=== PATIENT | female | born 1965 | race Caucasian/White ===

== ENCOUNTER 2020-08-09 15:21 | Outpatient (REF) | payer OTHER, SELFPAY ==
[2020-08-09 15:53] LABS: MANUAL DIFF FLAG NO
[2020-08-09 16:01] LABS: Basophils Percent Auto 0.3 % (0-2); Eosinophils Absolute Auto 0.1 X10*3/uL (0.0-0.4); Eosinophils Percent Auto 1.3 % (0-4); Hemoglobin 13.4 g/dl (12.0-16.0); Imm Gran Abs Auto 0.05 X10*3/uL (0.00-0.03); Imm Gran Pct Auto 0.5 % (0.0-0.4); Lymphocytes Absolute Auto 3.3 X10*3/uL (1.2-4.9); Lymphocytes Percent Auto 32.9 % (20-40); Mean Corpuscular HGB Conc 31.9 g/dl (31.0-35.0); Mean Corpuscular Hemoglobin 29.7 pg (27.0-33.0); Mean Corpuscular Volume 93.1 fL (80-98); Mean Platelet Volume 10.9 fL (9.4-12.3); Monocytes Absolute Auto 0.6 X10*3/uL (0.1-1.2); Monocytes Percent Auto 6.1 % (2-11); Neutrophils Percent Auto 58.9 % (45-73); Platelet Count 319 X10*3/uL (160-400); Red Blood Count 4.51 X10*6/uL (4.20-5.50); Red Cell Distribution Width 12.5 % (11.0-16.0); White Blood Count 10.2 X10*3/uL (4.8-10.8)
[2020-08-09 16:03] LABS: Estimated Average Glucose 105 mg/dL; Hemoglobin A1c % 5.3 %
[2020-08-09 16:18] LABS: Alanine Aminotransferase 15 U/L (0-31); Albumin Level 4.4 g/dL (3.5-5.0); Alkaline Phosphatase 87 U/L (39-117); Anion Gap 11 (12-20); Aspartate Amino Transferase 19 U/L (5-31); Blood Urea Nitrogen 13 mg/dL (9-16); Carbon Dioxide 27 mmol/L (22-29); Chloride 105 mmol/L (96-108); Cholesterol 252 mg/dL; Estimated Glomerular Filt Rate > 60; Glucose Fasting 87 mg/dL (60-99); HDL Cholesterol 49 mg/dL; LDL Cholesterol Calculated 159 mg/dl; Potassium 4.4 mmol/l (3.3-5.1); Sodium 139 mmol/L (135-145); Total Protein 7.1 g/dL (6.5-8.0); Triglycerides 223 mg/dL
[2020-08-09 16:38] LABS: TSH reflex Free T4 0.71 mIU/mL (0.32-4.0)
== END 2020-08-09 15:22 | disposition home or self-care (01) ==
LOC: HO.LAB 15:21
PROVIDERS: PCP Physician Assistant; Visit Provider Physician Assistant
DX: E66.09 Other obesity due to excess calories (principal); Z68.39 Body mass index [BMI] 39.0-39.9, adult; Z13.29 Encounter for screening for other suspected endocrine disorder; Z13.220 Encounter for screening for lipoid disorders; Z13.1 Encounter for screening for diabetes mellitus
CPT/HCPCS: 36415; 80053; 80061; 83036; 84443; 85025

== ENCOUNTER 2020-08-29 12:09 | Outpatient (REF) | payer OTHER, SELFPAY ==
--- NOTE | 2020-08-29 12:13 | MM_ITS ---
EXAMINATION: MM SCREENING DIGITAL BREAST TOMOSYNTHESIS, BILATERAL CLINICAL INFORMATION: Screening. Asymptomatic. The lifetime risk of breast cancer based on the Tyrer-Cuzick Model is 4.2%. COMPARISON: Mammography: February 03, 2013 and studies dating back to November 29, 2010 TECHNIQUE: Digital breast tomosynthesis is performed in both the craniocaudal and mediolateral oblique views along with computer-aided detection (CAD). Synthesized 2D images are generated from the tomosynthesis. FINDINGS: There are scattered areas of fibroglandular density (ACR BI-RADS breast composition Category b). There are no significant masses, abnormal calcifications, or other abnormalities. MM/MM tomosynthesis screening BI IMPRESSION: There are no significant changes from prior study. ASSESSMENT: BI-RADS 1: Negative RECOMMENDATION: Routine annual mammography screening. This patient's information was entered into a reminder system with a target due date for their next mammogram.
== END 2020-08-29 12:10 | disposition home or self-care (01) ==
LOC: HO.MAMMO 12:09
PROVIDERS: Visit Provider Physician Assistant
DX: Z12.31 Encounter for screening mammogram for malignant neoplasm of breast (principal)
CPT/HCPCS: 77063; 77067

== ENCOUNTER → 2020-10-17 14:54 | Outpatient (BNVA) | payer OTHER, SELFPAY | PROVIDERS: PCP Physician Assistant; Visit Provider Nurse Practitioner ==

== ENCOUNTER 2021-09-10 10:38 | Outpatient (REF) | payer OTHER, SELFPAY ==
--- NOTE | ~2021-09-10 | MM_ITS ---
EXAMINATION: MM SCREENING DIGITAL BREAST TOMOSYNTHESIS, BILATERAL CLINICAL INFORMATION: Screening. Asymptomatic. The lifetime risk of breast cancer based on the Tyrer-Cuzick Model is 5%. COMPARISON: Mammography: 08/29/2020, outside exam 02/03/2013 ([facility]) TECHNIQUE: Digital breast tomosynthesis is performed in both the craniocaudal and mediolateral oblique views along with computer-aided detection (CAD). Synthesized 2D images are generated from the tomosynthesis. Additional left MLO view is provided. FINDINGS: There are scattered areas of fibroglandular density (ACR BI-RADS breast composition Category b). There are no significant masses, abnormal calcifications, or other abnormalities. Parenchymal pattern is similar to prior studies. There is no developing density or architectural abnormality. The axilla and skin contours are unremarkable. No significant changes. MM/MM tomosynthesis screening BI IMPRESSION: No mammographic evidence of malignancy. ASSESSMENT: BI-RADS 1: Negative RECOMMENDATION: Routine annual mammography screening. This patient's information was entered into a reminder system with a target due date for their next mammogram.
[2021-09-10 12:16] LABS: Hematocrit 43.7 % (37.0-47.0); Hemoglobin 13.8 g/dl (12.0-16.0); Mean Corpuscular HGB Conc 31.6 g/dl (31.0-35.0); Mean Corpuscular Hemoglobin 29.9 pg (27.0-33.0); Mean Corpuscular Volume 94.8 fL (80.0-98.0); Mean Platelet Volume 10.4 fL (9.4-12.3); Platelet Count 359 X10*3/uL (160-400); Red Blood Count 4.61 X10*6/uL (4.20-5.50); Red Cell Distribution Width 13.1 % (11.0-16.0)
[2021-09-10 12:19] LABS: Estimated Average Glucose 100 mg/dL; Hemoglobin A1c % 5.1 %
[2021-09-10 12:36] LABS: Alanine Aminotransferase 42 U/L (0-31); Albumin Level 4.2 g/dL (3.5-5.0); Alkaline Phosphatase 95 U/L (39-117); Anion Gap 11 (12-20); Aspartate Amino Transferase 21 U/L (5-31); Bilirubin Total 0.9 mg/dL (0.0-1.0); Blood Urea Nitrogen 16 mg/dL (9-16); Calcium 9.6 mg/dL (8.4-10.2); Carbon Dioxide 30 mmol/L (22-29); Chloride 105 mmol/L (96-108); Cholesterol 238 mg/dL; Estimated Glomerular Filt Rate 54; Glucose Fasting 101 mg/dL (60-99); HDL Cholesterol 48 mg/dL; Iron 87 mcg/dL (30-160); LDL Cholesterol Calculated 150 mg/dl; Percent Iron Saturation 29 % (15-50); Potassium 3.8 mmol/L (3.3-5.1); Sodium 142 mmol/L (135-145); Total Iron Binding Capacity 305 mcg/dL (228-428); Total Protein 7.1 g/dL (6.5-8.0); Triglycerides 203 mg/dL; Unsaturated Iron Binding 218 ug/dL
[2021-09-10 12:59] LABS: TSH reflex Free T4 0.79 uIU/mL (0.32-4.0)
== END 2021-09-10 10:39 | disposition home or self-care (01) ==
LOC: HO.MAMMO 10:38
PROVIDERS: PCP Physician Assistant; Visit Provider Physician Assistant
DX: E78.2 Mixed hyperlipidemia (principal); D50.9 Iron deficiency anemia, unspecified; R06.02 Shortness of breath; Z12.31 Encounter for screening mammogram for malignant neoplasm of breast
CPT/HCPCS: 36415; 77063; 77067; 80053; 80061; 83036; 83540; 84443; 85027

== ENCOUNTER → 2021-12-25 12:27 | Outpatient (BNVA) | payer OTHER, SELFPAY | PROVIDERS: PCP Physician Assistant; Referring Provider Physician Assistant; Visit Provider Physician Assistant | DX: Z01.818 Encounter for other preprocedural examination (principal); R06.02 Shortness of breath | CPT/HCPCS: 99202 ==

== ENCOUNTER 2022-03-05 09:41 | Emergency (ER) | payer OTHER, SELFPAY ==
[2022-03-05 10:03] VITALS: BP 143/93; PULSE 85; RESP 19; TEMP 36.2; O2SAT 95; BMI 41.8
--- NOTE | 2022-03-05 10:21 | ED.GENADULT ---
HPI - General Adult General Chief complaint: Headache Stated complaint: HEADACHES Time Seen by Provider: 03/05/22 10:10 Source: patient Mode of arrival: ambulatory History of Present Illness HPI narrative: 57-year-old female with no significant past medical history presenting to the ED complaining of left-sided neck pain radiating to left posterior head since early this morning. Admits to waking up with pain. Admits to similar symptoms in the past. Reports pain worse with neck movement. Denies heavy lifting/injury. Denies taking anticoagulation, vision change/loss, nausea/vomiting, numbness, tingling, weakness, fever, ear pain, sore throat Onset (ago): day(s) Related Data Previous Rx's Medication Instructions Recorded ciclopirox 0.77 % topical gel 1 appl topical BID 30 days #100 08/09/20 grams ibuprofen 600 mg tablet 600 mg PO TID PRN pain 7 days #21 08/09/20 tabs multivit with minerals-folic acid 1 tab PO .once per day 90 days #90 09/11/20 200 mcg-biotin 300 mcg chew tablet tabs (Women's Multivitamin with Biotin) fluoxetine 40 mg capsule 40 mg PO DAILY 90 days #90 caps 07/22/21 albuterol sulfate 90 mcg/actuation 1 inh inhalation QID 30 days #8.5 12/03/21 aerosol inhaler grams bisacodyl 5 mg tablet,delayed 10 mg PO ONCE colonoscopy prep 1 12/25/21 release (Dulcolax (bisacodyl)) day #2 tabs polyethylene glycol 3350 17 238 g PO ONCE 1 day #238 grams 12/25/21 gram/dose oral powder (Miralax) cyclobenzaprine 5 mg tablet 5 mg PO Q8H PRN pain (scale score 03/05/22 7-10) 5 days #14 tabs lidocaine 5 % topical patch 1 patch topical DAILY PRN pain #30 03/05/22 (Lidoderm) ea naproxen 500 mg tablet 500 mg PO BID PRN pain 10 days #20 03/05/22 tabs Allergies Allergy/AdvReac Type Severity Reaction Status Date / Time No Known Allergies Allergy Verified 12/25/21 13:15 Review of Systems Review of Systems: Constitutional: No Fever, No Chills ENT/Mouth: No Ear Pain, No Nasal Congestion, No Hoarseness, No sore throat, No Rhinorrhea, No Swallowing Difficulty Cardiovascular: No Chest Pain, No SOB Respiratory: No Cough, No Sputum, No Wheezing Gastrointestinal: No Nausea, No Vomiting, No Diarrhea, No Constipation, No Abdominal pain Genitourinary: No Dysuria, No Urinary Incontinence/retention, No Urgency, No Flank Pain Musculoskeletal: + joint pain, No Myalgias, No Joint Swelling Skin: No Skin Lesions, No rash Neuro: No Weakness, No Numbness, No Paresthesias Yes all other systems are reviewed and are negative [facility] Past Medical History Attestation statement: The following information was validated with the patient. Surgical History Hx of cholecystectomy (~2017) No pertinent past surgical history Family History Family History Father Medical history unknown Mother Hypertension Diabetes Depression Mental health disorder Brother No problems noted. Sister No problems noted. Maternal Uncle Lung cancer Social History Social History Housing: Apartment Alcohol intake: never Patient Tobacco Use Status: Never used Tobacco Tobacco use type: Cigarette e-Cigarette/Vaping Use: Never Used Second Hand Smoke Exposure: No Advance Directives: No Advance Directives Information Provided: Yes service: No Current occupational status: unemployed Cognitive needs: No Hearing needs: No Vision needs: No Physical Exam ED Vital Signs: Vital Signs - 24 hr 03/05/22 10:03 Temperature 97.2 F Pulse Rate 85 Respiratory Rate 19 Blood Pressure 143/93 H Pulse Oximetry 95 Oxygen Delivery Method Room Air BMI result Body Mass Index 41.8 Const General: cooperative, healthy appearing, no acute distress, alert and awake Orientation/consciousness: patient oriented x3 Limitations: no limitations HENMT Head: Yes normal to inspection and Yes atraumatic Ears: hearing grossly normal bilaterally, external ears normal, TM's normal bilaterally and mastoids normal General nose exam: Normal external nose present Face and sinus: Yes normal facial exam Mouth: Normal oral and palatal mucosa present Throat: Yes posterior oropharynx normal, Yes tonsils normal, Yes uvula midline and No peritonsillar mass Eyes General: appearance normal, both eyes and all related structures Pupils: Equal, round and reactive pupils present EOM: EOMs intact bilaterally Neck Other: No midline cervical spinous tenderness/step-off or deformity. Left-sided/MSK tenderness. No erythema/warmth. Limited neck ROM secondary to pain/stiffness Neck: Yes normal visual inspection, Yes no lymphadenopathy, Yes no meningeal signs, Yes supple and No anterior neck swelling Resp Effort & Inspection: normal respiratory effort and no respiratory distress Cardio Rate: regular rate Heart sounds: S1 normal heart sound present and S2 normal heart sound present GI Inspection: Yes normal to inspection Skin Rashes: no rashes Wounds: no wounds Neuro General: patient oriented x3, gait normal, tone normal, moves all extremities, no meningeal signs, no focal motor deficits and CN's II-XI intact bilaterally Cranial nerves: Yes Equal, round and reactive pupils present and Yes Bilaterally intact EOM present Gait exam (Neuro): Normal gait present Extrem General: Yes normal to inspection Course Course Course Narrative: 1111--patient reports symptomatic improvement after medications given in the ED. Medical Decision Making [facility] Narrative Medical decision making narrative: 57-year-old female with no significant past medical history presenting to the ED complaining of left-sided neck pain radiating to left posterior head since early this morning. On exam vital signs stable, NAD, physical exam as above. No midline cervical spinous tenderness. T Aurelia/oropharynx WNL. Concern for MSK pain/strain/muscle spasming. Low concern for meningitis/encephalitis, SAH, or CVT/cervical dissection Plan: Pain management, physical therapy referral Medical Records Medical records reviewed: Yes I reviewed the patient's medical records. Lab Data Lab results reviewed: Yes I reviewed the patient's lab results. Discharge Plan Discharge Clinical Impression: Neck pain Patient Disposition: Home, Self-Care Instructions: Acute Neck Pain (ED) Additional Instructions: Your pain is likely musculoskeletal Flexeril is a muscle relaxer, take at night as it makes you drowsy, do not drive, drink alcohol, or operate machinery while taking it Naproxen as an anti-inflammatory / pain medication, take with food Lidoderm patches are numbing patches, apply to painful area In addition take Tylenol at home Please follow-up with physical therapy and your doctor If symptoms persist or worsen, pain becomes unbearable, you developed urinary retention or incontinence, or weakness return to the ED Prescriptions: New lidocaine [Lidoderm] 5 % adhesive patch,medicated 1 patch topical DAILY MDD remove after 12 hours PRN (Reason: pain) Qty: 30 0RF Rx Instructions: leave on most painful area for up to 12 hrs naproxen 500 mg tablet 500 mg PO BID PRN (Reason: pain) 10 Days Qty: 20 0RF cyclobenzaprine 5 mg tablet 5 mg PO Q8H PRN (Reason: pain (scale score 7-10)) 5 Days Qty: 14 0RF No Action Women's Multivitamin w-Biotin 200-300 mcg tablet,chewable 1 tab PO .once per day 90 Days Qty: 90 2RF ibuprofen 600 mg tablet 600 mg PO TID PRN (Reason: pain) 7 Days Qty: 21 1RF ciclopirox 0.77 % gel 1 appl topical BID 30 Days Qty: 100 1RF albuterol sulfate 90 mcg/actuation HFA aerosol inhaler 1 inh inhalation QID 30 Days Qty: 8.5 1RF fluoxetine 40 mg capsule 40 mg PO DAILY 90 Days Qty: 90 0RF bisacodyl [Dulcolax (bisacodyl)] 5 mg tablet,delayed release (DR/EC) 10 mg PO ONCE 1 Days Qty: 2 0RF Rx Instructions: Take 2 tablets by mouth at 12:00pm the day before your procedure. polyethylene glycol 3350 [Miralax] 17 gram/dose powder 238 g PO ONCE 1 Days Qty: 238 0RF Rx Instructions: Take as directed by mouth the day before your procedure. Referrals: Junior Puri MD [Physician] - Donny Correia [Physical Therapy Student] -
[2022-03-05] MEDS: diazePAM 2 MG TABLET 5 MG PO (10:35)
[2022-03-05] MEDS: Ketorolac Tromethamine 30 MG/ML VIAL IM (10:37)
== END 2022-03-05 11:34 | disposition home or self-care (01) ==
PROVIDERS: Emergency Provider Emergency Medicine; PCP Physician Assistant
DX: M54.2 Cervicalgia (principal); R51.9 Headache, unspecified; I10 Essential (primary) hypertension; E78.5 Hyperlipidemia, unspecified
CPT/HCPCS: 96372; 99283; 99284; J1885

== ENCOUNTER 2022-03-31 13:44 | Outpatient (RCR) | payer OTHER, SELFPAY ==
--- NOTE | 2022-03-31 17:02 | MHC.PT.EP ---
[facility] [place] Office [place] Office [place] Office [address] Coleman Roche [address] [phone] F: [phone] F: [phone] F: [phone] F: [phone] Physical Therapy Plan of Care Date of Evaluation: Date of Surgery: NA Diagnosis: SEGMENTAL AND SOMATIC DYSFUNCTION OF CERVICAL REGION Assessment: Pt IS 57 YO F REFERRED TO PT FROM [facility] WITH DYSFUNCTION OF CERVICAL REGION. Pt REPORTS 1 YR HX OF NECK PAIN WITH INSIDIOUS ONSET. PRESENTS WITH POOR POSTURE, TIGHT UT/PEC MMS AND DECREASED UPPER BODY STRENGTH WITH PAIN AFFECTING ADLS. SHOULD BENEFIT FROM PT TO ADDRESS THESE ISSUES Frequency and Duration: The patient will be seen 2X/WK X 6 WKS Short Term Goals: 1. INCREASED POSTURE AWARENESS AND AWARENESS NECK CARE 2. LOCALIZE SXS (TO NECK VS UP SIDE OF HEAD) Pantry Steward/Stewardess Goals: 1. I HEP WITH DC EX PLAN 2. IMPROVED CERV ROT AND LAT FLEX BY AT LEAST 25% 3. DECREASED NECK PAIN AT LEAST 50% WITH ADLS Treatment Plan: Modalities to reduce pain, spasms and effusion. Manual therapy to restore motion and function. Therapeutic exercise to improve strength and flexibility. Neuromuscular re-education for posture and balance. Therapeutic activities to return to functional activities of daily living. Electronically signed by: JERE CISNEROS PT Please sign and return to therapist. Thank you for your referral.
--- NOTE | 2022-04-22 13:17 | MHC.PT.DC ---
[facility] [place] Office [place] Office [place] Office [address] Coleman Roche [address] [phone] F: [phone] F: [phone] F: [phone] F: [phone] Physical Therapy Discharge Report Diagnosis: SEGMENTAL AND SOMATIC DYSFUNCTION OF CERVICAL REGION Date of Surgery: NA Date of Evaluation: 03/31/22 Date of Discharge: Treatments to Date: 1 Cancellations to Date: 2 No Shows to Date: Discharge Status: Patient Elected to Stop Recommend MD Follow-up Discharge Summary: er init eval assessment Pt IS 57 YO F REFERRED TO PT FROM [facility] WITH DYSFUNCTION OF CERVICAL REGION. Pt REPORTS 1 YR HX OF NECK PAIN WITH INSIDIOUS ONSET. PRESENTS WITH POOR POSTURE, TIGHT UT/PEC MMS AND DECREASED UPPER BODY STRENGTH WITH PAIN AFFECTING ADLS. SHOULD BENEFIT FROM PT TO ADDRESS THESE ISSUES' Pt SEEN FOR INIT EVAL ONLY (03/31) THEN CANCELLED NEXT 2 APPTS (04/03, 04/07) REPORTING IN ALOT OF PAIN SINCE EVAL AND NOT SURE SHE SHOULD CONTINUE AND THAT HER DAUGHTER WILL CALL TO RESCHEDULE. THIS PT TRIED TO REACH OUT TO Pt (CELL PHONE = [phone])BUT THE PHONE NOT IN SERVICE WILL DC AT THIS TIME SINCE THERE ARE NO MORE APPTS SCHEDULED AND IT HAS BEEN OVER 3 WKS SINCE LAST SEEN Electronically signed by: JERE CISNEROS PT Please sign and return to therapist. Thank you for your referral.
== END 2022-04-22 13:17 | disposition home or self-care (01) ==
LOC: HO.PT 13:44
PROVIDERS: PCP Physician Assistant; Visit Provider Physician Assistant
DX: M99.01 Segmental and somatic dysfunction of cervical region (principal)
CPT/HCPCS: 97110; 97161

== ENCOUNTER 2023-04-08 09:09 | Outpatient (AMB) | payer OTHER, SELFPAY ==
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
== END 2023-04-08 10:14 | disposition home or self-care (01) ==
PROVIDERS: PCP Physician Assistant; Referring Provider Physician Assistant; Visit Provider Neurological Surgery
DX: M54.2 Cervicalgia (principal)
CPT/HCPCS: 99204

== ENCOUNTER → 2023-04-08 09:09 | Outpatient (BNVA) | payer OTHER, SELFPAY | PROVIDERS: PCP Physician Assistant; Referring Provider Physician Assistant; Visit Provider Neurological Surgery | DX: M54.2 Cervicalgia (principal) | CPT/HCPCS: 99202 ==

== ENCOUNTER 2023-04-13 19:16 | Emergency (ER) | payer OTHER, SELFPAY ==
--- NOTE | ~2023-04-13 | XR_ITS ---
EXAMINATION: XR CHEST CLINICAL INFORMATION: Difficulty breathing COMPARISON: Chest x-ray on 09/19/2014 TECHNIQUE: 2 views of the chest were obtained. FINDINGS: No significant abnormality is noted involving the heart, lungs, mediastinum, bony thorax or soft tissues. XR/XR chest 2V IMPRESSION: Unremarkable examination.
--- NOTE | 2023-04-13 19:22 | ED.GENADULT ---
HPI - General Adult General Stated complaint: difficulty breathing Source: patient Mode of arrival: ambulatory Limitations: no limitations History of Present Illness HPI narrative: Patient is a 58 year old assigned female at with a history of migraines, anxiety, and HTN presenting to the emergency department today with shortness of breath. Patient states that she is feeling more short of breath lately. Patient denies any dizziness, lightheadedness, abdominal pain, nausea, vomiting, fever, chills, blurry vision, double vision, loss of vision, chest pain, back pain, night sweats, pain with urination, increased urinary frequency, increased urinary urgency, blood in her urine or stool, syncope or a near syncopal episode, recent trauma or falls, bowel incontinence, bladder incontinence, bowel retention, bladder retention, or any other complaints at this time. Severity: mild Severity scale (1-10): 3 Relieving factors: none Exacerbating factors: none Associated symptoms: shortness of breath Treatments prior to arrival: none Related Data Home Medications Medication Instructions Recorded Confirmed fluoxetine 40 mg capsule 80 mg PO DAILY 07/24/22 07/24/22 Previous Rx's Medication Instructions Recorded bisacodyl 5 mg tablet,delayed 10 mg PO ONCE colonoscopy prep 1 12/25/21 release (Dulcolax (bisacodyl)) day #2 tabs blood pressure test kit-large #1 ea 03/05/22 ciclopirox 0.77 % topical gel 1 appl topical BID 30 days #100 03/05/22 grams ibuprofen 600 mg tablet 600 mg PO TID PRN pain 7 days #21 03/05/22 tabs lidocaine 5 % topical patch 1 patch topical DAILY PRN pain #30 03/05/22 (Lidoderm) ea polyethylene glycol 3350 17 238 g PO ONCE 1 day #238 grams 05/15/22 gram/dose oral powder (Miralax) azithromycin 250 mg tablet See Rx Instructions PO .COMPLEX #6 01/29/23 tabs gabapentin 300 mg capsule 300 mg PO BID 30 days #60 caps 01/29/23 albuterol sulfate 90 mcg/actuation 1 puff inhalation QID PRN for 03/18/23 aerosol inhaler (Ventolin HFA) wheezing #18 ea oxycodone 5 mg tablet 5 mg PO Q8H PRN pain 7 days #21 04/06/23 tabs Allergies Allergy/AdvReac Type Severity Reaction Status Date / Time No Known Allergies Allergy Verified 07/24/22 10:51 Review of Systems Constitutional: Constitutional: Reports no additional constitutional complaints, Denies chills, Denies fever(s) and Denies night sweats Eyes: Eyes: Reports no additional eye complaints, Denies blurry vision, Denies change in vision, Denies diplopia, Denies eye discharge, Denies loss of vision and Denies eye pain ENT: Denies dizziness Cardiovascular: Cardiovascular: Reports no additional cardiovascular complaints, Denies chest pain, Denies lightheadedness, Denies Loss of Consciousness and Reports dyspnea Respiratory: Respiratory: Reports no additional respiratory complaints and Reports dyspnea Gastrointestinal: Gastrointestinal: Reports no additional gastrointestinal complaints, Denies abdominal pain, Denies melena, Denies hematochezia, Denies change in bowel habits and Denies change in stool character Genitourinary: Genitourinary: Denies hematuria, Denies urinary frequency, Denies dysuria, Denies urinary incontinence, Denies urinary hesitancy and Denies urinary urgency Musculoskeletal: Musculoskeletal: Reports no additional musculoskeletal complaints, Denies numbness and Denies tingling Neurologic: Denies dizziness, Denies loss of vision, Denies numbness and Denies tingling Psychiatric: Psychiatric: Reports no additional psychiatric complaints Endocrine: Endocrine: Reports no additional endocrine complaints Hematologic/Lymphatic: Hematologic/Lymphatic: Reports no additional hematologic/lymphatic complaints Allergic/Immunologic: Allergic/Immunologic: Reports no additional allergic/immunologic complaints FORMERLY [facility] Past Medical History Attestation statement: The following information was validated with the patient. Source: old records reviewed and nursing notes reviewed Medical History Annual physical exam Breast cancer screening Bronchitis Colon cancer screening Neck pain Obese Obese Screening for diabetes mellitus (DM) Screening for hypercholesterolemia Screening for hypothyroidism SOB (shortness of breath) on exertion Surgical History Hx of cholecystectomy (~2017) No pertinent past surgical history Family History Family History Father Medical history unknown Mother Hypertension Diabetes Depression Mental health disorder Brother No problems noted. Sister No problems noted. Maternal Uncle Lung cancer Social History Social History Housing: Apartment Alcohol intake: never Patient Tobacco Use Status: Never used Tobacco Tobacco use type: Cigarette e-Cigarette/Vaping Use: Never Used Second Hand Smoke Exposure: No Advance Directives: No Advance Directives Information Provided: No service: No Current occupational status: unemployed Cognitive needs: No Hearing needs: No Vision needs: No Physical Exam ED Const General: cooperative, no acute distress, alert and awake Nutritional Appearance: well nourished Orientation/consciousness: patient oriented x3 Limitations: no limitations HENMT Head: Yes normal to inspection and Yes atraumatic Ears: hearing grossly normal bilaterally and external ears normal General nose exam: Normal external nose present, no nasal discharge noted and no epistaxis Face and sinus: Yes normal facial exam, No abrasion and No laceration Mouth: Normal oral and palatal mucosa present, no drooling and no muffled voice Eyes General: appearance normal, both eyes and all related structures Periorbital: periorbital findings normal Eyelids: Yes eyelids normal Conjunctivae: conjunctivae normal Pupils: Equal, round and reactive pupils present EOM: EOMs intact bilaterally Neck Neck: Yes normal visual inspection, Yes full ROM and Yes no lymphadenopathy Chest Chest palpation & inspection: normal inspection of the chest Resp Effort & Inspection: normal respiratory effort and able to speak in complete sentences GI Inspection: Yes normal to inspection Neuro General: patient oriented x3 and moves all extremities Cranial nerves: Yes Equal, round and reactive pupils present Cognition (Neuro): normal cognition Motor exam (neuro): 5/5 motor strength present throughout Sensory Exam: Normal double simultaneous stimulation for sensation Coordination: [id number] test normal Extrem General: Yes normal to inspection, Yes full ROM and Yes capillary refill normal Psych Appearance: grossly normal Mental Status: mental status grossly normal Affect: normal affect Attitude: cooperative Thought process: Normal thought process present Thought content: Normal thought content present Insight: Good insight present (Psych) Course Course Course Narrative: RME performed by Sara Abbott PA-C. Patient is a 58 year old assigned female at presenting to the emergency department with shortness of breath. Labs, imaging, and swabs ordered. Patient placed back in the waiting room pending room availability and results. Medical Decision Making Medical Decision Making MDM Narrative: Patient is a 58 year old assigned female at with a history of depression, migraines, and HTN presenting to the emergency department today with shortness of breath. Patient's limited physical exam performed in triage was unremarkable. Patient's blood work was unremarkable. Patient's EKG was unremarkable. Patient's chest x-ray showed no acute process. Patient eloped from the department before myself or any of the other emergency department providers could perform a more thorough physical examination, explain physical examination findings, explain testing results, discuss need or lack there of for further work up, or discuss treatment options. Differential Diagnosis Differential Diagnoses: The differential diagnosis associated with the presentation includes Shortness of breath URI Cough Admission/Observation Consideration of admission/observation: Escalation of care including admission/observation considered Patient would have been admitted to the hospital had her work up had any findings where hospital admission was appropriate, her clinical presentation warranted hospital admission, and she had not eloped from the department. Lab Data MDM Lab Attestation statement: I reviewed the patient's lab results. My interpretation of these studies and their corresponding values is that they are grossly normal. 04/13/23 20:05 04/13/23 20:05 Labs: Lab Results 04/13/23 04/13/23 04/13/23 Range/Units 20:05 20:05 20:05 WBC 9.8 (4.8-10.8) X10*3/uL RBC 4.39 (4.20-5.50) X10*6/uL Hgb 13.4 (12.0-16.0) g/dl Hct 40.5 (37.0-47.0) % MCV 92.3 (80.0-98.0) fL MCH 30.5 (27.0-33.0) pg MCHC 33.1 (31.0-35.0) g/dl RDW 12.3 (11.0-16.0) % Plt Count 261 D (160-400) X10*3/uL MPV 10.8 (9.4-12.3) fL Immature Gran % (Auto) 0.5 H (0.0-0.4) % Neut % (Auto) 56.4 (45-73) % Lymph % (Auto) 35.1 (20-40) % [place] % (Auto) 6.2 (2-11) % Eos % (Auto) 1.4 (0-4) % Baso % (Auto) 0.4 (0-2) % Lymph # (Auto) 3.4 (1.2-4.9) X10*3/uL [place] # (Auto) 0.6 (0.1-1.2) X10*3/uL Eos # (Auto) 0.1 (0.0-0.4) X10*3/uL Baso # (Auto) 0.0 (0.0-0.2) X10*3/uL Abs Immat Gran (auto) 0.05 H (0.00-0.03) X10*3/uL Absolute Neuts (auto) 5.5 (2.0-8.3) x10*3/uL Absolute Nucleated RBC 0.000 (0.0-0.012) X10*3/uL Nucleated RBC % (auto) 0.0 (0.0-0.2) /100WBC Sodium 139 (135-145) mmol/L Potassium 4.0 (3.3-5.1) mmol/L Chloride 106 (96-108) mmol/L Carbon Dioxide 23 (22-29) mmol/L Anion Gap 14 (12-20) BUN 19 H (9-16) mg/dL Creatinine 0.86 (0.5-1.4) mg/dL Estim Creat Clear Calc TNP Estimated GFR > 60 Random Glucose 98 (60-115) mg/dL Calcium 9.1 (8.4-10.2) mg/dL Magnesium 1.8 (1.6-2.6) mg/dL Total Bilirubin 0.9 (0.0-1.0) mg/dL AST 24 (5-31) U/L ALT 17 (0-31) U/L Alkaline Phosphatase 82 (39-117) U/L Troponin I High Sens < 2.7 (<3.5-17.0) ng/L Total Protein 7.4 (6.5-8.0) g/dL Albumin 4.3 (3.5-5.0) g/dL COVID-19 (JON) (Negative) COVID-19 Clin Com 04/13/23 Range/Units 20:05 WBC (4.8-10.8) X10*3/uL RBC (4.20-5.50) X10*6/uL Hgb (12.0-16.0) g/dl Hct (37.0-47.0) % MCV (80.0-98.0) fL MCH (27.0-33.0) pg MCHC (31.0-35.0) g/dl RDW (11.0-16.0) % Plt Count (160-400) X10*3/uL MPV (9.4-12.3) fL Immature Gran % (Auto) (0.0-0.4) % Neut % (Auto) (45-73) % Lymph % (Auto) (20-40) % [place] % (Auto) (2-11) % Eos % (Auto) (0-4) % Baso % (Auto) (0-2) % Lymph # (Auto) (1.2-4.9) X10*3/uL [place] # (Auto) (0.1-1.2) X10*3/uL Eos # (Auto) (0.0-0.4) X10*3/uL Baso # (Auto) (0.0-0.2) X10*3/uL Abs Immat Gran (auto) (0.00-0.03) X10*3/uL Absolute Neuts (auto) (2.0-8.3) x10*3/uL Absolute Nucleated RBC (0.0-0.012) X10*3/uL Nucleated RBC % (auto) (0.0-0.2) /100WBC Sodium (135-145) mmol/L Potassium (3.3-5.1) mmol/L Chloride (96-108) mmol/L Carbon Dioxide (22-29) mmol/L Anion Gap (12-20) BUN (9-16) mg/dL Creatinine (0.5-1.4) mg/dL Estim Creat Clear Calc Estimated GFR Random Glucose (60-115) mg/dL Calcium (8.4-10.2) mg/dL Magnesium (1.6-2.6) mg/dL Total Bilirubin (0.0-1.0) mg/dL AST (5-31) U/L ALT (0-31) U/L Alkaline Phosphatase (39-117) U/L Troponin I High Sens (<3.5-17.0) ng/L Total Protein (6.5-8.0) g/dL Albumin (3.5-5.0) g/dL COVID-19 (JON) Negative (Negative) COVID-19 Clin Com See Note Independent Interpretation I performed an independent interpretation of an: EKG and Plain X-Ray Interpretation: My interpretation is in agreement with the radiologist's impression of this imaging study. EXAMINATION: XR CHEST CLINICAL INFORMATION: Difficulty breathing COMPARISON: Chest x-ray on 09/19/2014 TECHNIQUE: 2 views of the chest were obtained. FINDINGS: No significant abnormality is noted involving the heart, lungs, mediastinum, bony thorax or soft tissues. XR/XR chest 2V IMPRESSION: Unremarkable examination. Dictated By: Maris Shea MD Signed By: Electronically signed by Maris Shea MD 04/13/232003 Vent. Rate: 094 BPM ? ? Atrial Rate: 094 BPM P-R Int: 156 ms? QRS Dur: 084 ms QT Int: 354 ms ? ? ? P-R-T Axes: 031 000 022 degrees QTc Int: 442 ms ? Normal sinus rhythm Normal ECG When compared with ECG of 18-SEP-2014 18:06, No significant change was found ? Electronically Signed By:Anatoliy Hanson Dictated By: Anatoliy Hanson MD Signed By: Electronically signed by Anatoliy Hanson MD 04/14/23 3498 Radiology Impression Discussion of test interpretation with radiology: I have reviewed the radiologist's reading. Chronic Conditions Patient?s care impacted by: Hypertension Discharge Plan Discharge Clinical Impression: Shortness of breath Patient Disposition: Elopement Prescriptions: No Action polyethylene glycol 3350 [Miralax] 17 gram/dose powder 238 g PO ONCE 1 Days Qty: 238 0RF Rx Instructions: Take as directed by mouth the day before your procedure. azithromycin 250 mg tablet See Rx Instructions PO .COMPLEX Qty: 6 0RF Rx Instructions: For 250 mg dose pack: take 500 mg today (day 1), then 250 mg for 4 days (days 2-5) PO gabapentin 300 mg capsule 300 mg PO BID 30 Days Qty: 60 1RF albuterol sulfate [Ventolin HFA] 90 mcg/actuation HFA aerosol inhaler 1 puff inhalation QID PRN (Reason: for wheezing) Qty: 18 0RF oxycodone 5 mg tablet 5 mg PO Q8H PRN (Reason: pain) 7 Days Qty: 21 0RF Rx Instructions: Partial Fill upon patient request. lidocaine [Lidoderm] 5 % adhesive patch,medicated 1 patch topical DAILY MDD remove after 12 hours PRN (Reason: pain) Qty: 30 0RF Rx Instructions: leave on most painful area for up to 12 hrs fluoxetine 40 mg capsule 80 mg PO DAILY ciclopirox 0.77 % gel 1 appl topical BID 30 Days Qty: 100 1RF (DME) blood pressure test kit-large Kit See Rx Instructions .Route Qty: 1 0RF Rx Instructions: As directed ibuprofen 600 mg tablet 600 mg PO TID PRN (Reason: pain) 7 Days Qty: 21 1RF bisacodyl [Dulcolax (bisacodyl)] 5 mg tablet,delayed release (DR/EC) 10 mg PO ONCE 1 Days Qty: 2 0RF Rx Instructions: Take 2 tablets by mouth at 12:00pm the day before your procedure. Discharge Date/Time: 04/13/23 21:18
--- NOTE | 2023-04-13 19:23 | ECG_ITS ---
Test Reason : CHEST PAIN Blood Pressure : / mmHG Vent. Rate : 094 BPM Atrial Rate : 094 BPM P-R Int : 156 ms QRS Dur : 084 ms QT Int : 354 ms P-R-T Axes : 031 000 022 degrees QTc Int : 442 ms Normal sinus rhythm Normal ECG When compared with ECG of 18-SEP-2014 18:06, No significant change was found Referred By: Sara Abbott Electronically Signed By:Anatoliy Hanson
[2023-04-13 20:10] LABS: MANUAL DIFF FLAG NO
[2023-04-13 20:11] LABS: Basophils Percent Auto 0.4 % (0-2); Eosinophils Absolute Auto 0.1 X10*3/uL (0.0-0.4); Eosinophils Percent Auto 1.4 % (0-4); Hematocrit 40.5 % (37.0-47.0); Hemoglobin 13.4 g/dl (12.0-16.0); Imm Gran Abs Auto 0.05 X10*3/uL (0.00-0.03); Imm Gran Pct Auto 0.5 % (0.0-0.4); Lymphocytes Absolute Auto 3.4 X10*3/uL (1.2-4.9); Lymphocytes Percent Auto 35.1 % (20-40); Mean Corpuscular HGB Conc 33.1 g/dl (31.0-35.0); Mean Corpuscular Hemoglobin 30.5 pg (27.0-33.0); Mean Corpuscular Volume 92.3 fL (80.0-98.0); Mean Platelet Volume 10.8 fL (9.4-12.3); Monocytes Absolute Auto 0.6 X10*3/uL (0.1-1.2); Monocytes Percent Auto 6.2 % (2-11); Neutrophils Absolute Auto 5.5 x10*3/uL (2.0-8.3); Neutrophils Percent Auto 56.4 % (45-73); Platelet Count 261 X10*3/uL (160-400); Red Blood Count 4.39 X10*6/uL (4.20-5.50); Red Cell Distribution Width 12.3 % (11.0-16.0); White Blood Count 9.8 X10*3/uL (4.8-10.8)
[2023-04-13 20:24] LABS: COVID-19 Test Negative (Negative); IDNOW Serial# BCCEAD1C
[2023-04-13 20:35] LABS: Alanine Aminotransferase 17 U/L (0-31); Albumin Level 4.3 g/dL (3.5-5.0); Alkaline Phosphatase 82 U/L (39-117); Anion Gap 14 (12-20); Aspartate Amino Transferase 24 U/L (5-31); Bilirubin Total 0.9 mg/dL (0.0-1.0); Blood Urea Nitrogen 19 mg/dL (9-16); Calcium 9.1 mg/dL (8.4-10.2); Carbon Dioxide 23 mmol/L (22-29); Chloride 106 mmol/L (96-108); Estimated Glomerular Filt Rate > 60; Glucose Random 98 mg/dL (60-115); Magnesium 1.8 mg/dL (1.6-2.6); Sodium 139 mmol/L (135-145); Total Protein 7.4 g/dL (6.5-8.0)
[2023-04-13 20:43] LABS: Troponin-I High Sensitivity < 2.7 ng/L (<3.5-17.0)
== END 2023-04-13 21:18 | disposition left against medical advice (07) ==
PROVIDERS: Physician Assistant Medical; Emergency Provider Emergency Medicine
DX: R06.02 Shortness of breath (principal); Z20.822 Contact with and (suspected) exposure to COVID-19; I10 Essential (primary) hypertension; E78.5 Hyperlipidemia, unspecified; Z79.899 Other long term (current) drug therapy
CPT/HCPCS: 71046; 80053; 83735; 84484; 85025; 87635; 93005; 99282; 99283

== ENCOUNTER → 2023-04-13 19:23 | Outpatient (BNV) | payer OTHER, SELFPAY | PROVIDERS: Emergency Provider Emergency Medicine; Visit Provider Internal Medicine Cardiovascular Disease | DX: R07.9 Chest pain, unspecified (principal) | CPT/HCPCS: 93010 ==

== ENCOUNTER 2024-02-08 11:25 | Outpatient (REF) | payer OTHER, SELFPAY ==
[2024-02-08 12:19] LABS: Hematocrit 39.7 % (37.0-47.0); Hemoglobin 12.8 g/dl (12.0-16.0); Mean Corpuscular HGB Conc 32.2 g/dl (31.0-35.0); Mean Corpuscular Hemoglobin 29.9 pg (27.0-33.0); Mean Corpuscular Volume 92.8 fL (80.0-98.0); Mean Platelet Volume 11.3 fL (9.4-12.3); Platelet Count 268 X10*3/uL (160-400); Red Blood Count 4.28 X10*6/uL (4.20-5.50); Red Cell Distribution Width 14.2 % (11.0-16.0); White Blood Count 8.5 X10*3/uL (4.8-10.8)
[2024-02-08 12:48] LABS: Alanine Aminotransferase 21 U/L (0-31); Albumin Level 4.3 g/dL (3.5-5.0); Alkaline Phosphatase 100 U/L (39-117); Anion Gap 11 (12-20); Aspartate Amino Transferase 29 U/L (5-31); Bilirubin Total 1.2 mg/dL (0.0-1.0); Blood Urea Nitrogen 18 mg/dL (9-16); Calcium 9.6 mg/dL (8.4-10.2); Carbon Dioxide 25 mmol/L (22-29); Chloride 109 mmol/L (96-108); Cholesterol 232 mg/dL (<200); Estimated Glomerular Filt Rate > 60; Glucose Fasting 99 mg/dL (60-99); HDL Cholesterol 50 mg/dL (>40); LDL Cholesterol Calculated 146 mg/dL (<100); Potassium 3.6 mmol/L (3.3-5.1); Sodium 141 mmol/L (135-145); Total Protein 7.4 g/dL (6.5-8.0); Triglycerides 181 mg/dL (<150)
== END 2024-02-08 11:26 | disposition home or self-care (01) ==
LOC: HO.LAB 11:25
PROVIDERS: PCP Physician Assistant; Visit Provider Physician Assistant
DX: I10 Essential (primary) hypertension (principal); E78.2 Mixed hyperlipidemia
CPT/HCPCS: 36415; 80053; 80061; 82043; 82570; 85027

== ENCOUNTER 2024-02-29 11:13 | Outpatient (AMB) | payer OTHER, SELFPAY ==
--- NOTE | 2024-02-29 11:16 | MHC.PC.OV ---
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 Required: No Accompanied by: Self / Same As Patient Allergies No Known Allergies Allergy (Verified 02/29/24 11:23) Tobacco use date assessed: 02/29/24 Dental Screening Dental Screen Date: 02/29/24 Did you have a dental visit in the last 12 months?: No Did you have a dental problem in the last 6 months where you did not have access to dental care?: Yes Was dental information given to patient?: Yes FORMERLY [facility], [facility] Medical History Annual physical exam Breast cancer screening Bronchitis Colon cancer screening Neck pain Obese Obese Screening for diabetes mellitus (DM) Screening for hypercholesterolemia Screening for hypothyroidism SOB (shortness of breath) on exertion Surgical History Hx of cholecystectomy (~2017) No pertinent past surgical history Family History Father Medical history unknown Mother Hypertension Diabetes Depression Mental health disorder Brother No problems noted. Sister No problems noted. Maternal Uncle Lung cancer Social History Housing: Apartment Alcohol intake: never Patient Tobacco Use Status: Never used Tobacco Tobacco use type: Cigarette e-Cigarette/Vaping Use: Never Used Second Hand Smoke Exposure: No service: No Current occupational status: unemployed Cognitive needs: No Hearing needs: No Vision needs: No Questionnaire PHQ-9 Over the last 2 weeks, how often have you been bothered by any of the following problems? 1. Little interest or pleasure in doing things: not at all 2. Feeling down, depressed, or hopeless: not at all 3. Trouble falling or staying asleep, or sleeping too much: not at all 4. Feeling tired or having little energy: not at all 5. Poor appetite or overeating: not at all 6. Feeling bad about yourself - or that you are a failure or have let yourself or your family down: not at all 7. Trouble concentrating on things, such as reading the newspaper or watching television: not at all 8. Moving or speaking so slowly that other people could have noticed. Or the opposite - being so fidgety or restless that you have been moving around a lot more than usual: not at all 9. Thoughts that you would be better off or of hurting yourself in some way: not at all Total score: 0 Depression Screening Interpretation: Negative Depression Screening Done: Yes 79780 - PHQ-9 Billing: Yes Source: Developed by Drs. Arturo Lock, Natividad Cisneros, Alban Espinoza and colleagues, with an educational brent from [employer]. Thrive Questionnaire Date Thrive assessed: 02/29/24 I am a: Patient What is your living situation today?: I have a steady place to live Within the past 12 months, did the food you bought not last and you didn't have the money to get more?: Never true Within the past 12 months, did you worry whether your food would run out before you got money to buy more?: Never true Do you have trouble paying for medicines?: No Do you have trouble getting transportation to medical appointments?: No Do you have trouble paying your heating and electricity bill?: No Do you have trouble taking care of your child, family member or friend?: No Do you have trouble with day-to-day activities such as bathing, preparing meals, shopping, managing finances, etc.?: No Are you currently unemployed and looking for a job?: No Are you interested in more education?: No Please select the resources that you would like help with: None Currently or been in a relationship where the following occur: no concerns reported THRIVE Score: 0 AUDIT C Alcohol Use Questionnaire (AUDIT-C) 1. How often do you have a drink containing alcohol?: Never 3. How often do you have six or more drinks on one occasion?: Never Total Score: 0 Score Reviewed/Action Taken: No ASHLEY-7 AMB Questionnaire ASHLEY-7 Date ASHLEY - 7 assessed: 02/29/24 Feeling nervous, anxious, or on edge: 0 = Not at all Not being able to stop or control worryin = Not at all Worrying too much about different things: 0 = Not at all Trouble relaxin = Not at all Being so restless that it is hard to sit still: 0 = Not at all Becoming easily annoyed or irritable: 0 = Not at all Feeling afraid as if something awful might happen: 0 = Not at all Total ASHLEY-7 score (0-4 normal; 5-9 mild; 10-14 moderate; 15-21 severe): 0 Source: Developed by Drs. Arturo Lock, Natividad Cisneros, Alban Espinoza and colleagues, with an educational brent from [employer]. ASHLEY-7 Assessment Billing ASHLEY-7 Assessment Tool: ASHLEY-7 Assessment 86421 Physical exam (Primary Care) Tobacco/Smoking Status: Tobacco use Status Tobacco use date assessed 12/03/21 03/04/23 14:15 Patient Tobacco Use Status Never used Tobacco 03/04/23 14:15 Tobacco use type Cigarette 03/04/23 14:15 e-Cigarette/Vaping Use Never Used 03/04/23 14:15 Depression Screening Interpretation: Negative Thrive Assessment: Date of Thrive Assessment Date Thrive assessed 12/03/21 03/04/23 14:15 Currently or been in a relationship where the following occur: no concerns reported Coding Additional Codes ASHLEY-7 Assessment Billing - ASHLEY-7 Assessment Tool: ASHLEY-7 Assessment 97821 ([id number])
[2024-02-29 11:17] VITALS: BP 126/88; O2SAT 96; BMI 40.1
--- NOTE | 2024-02-29 11:29 | MHC.PC.OV ---
Vital Signs 02/29/24 11:17 Height 5 ft Weight 205 lb 8 oz BMI 40.1 BP 126/88 Blood Pressure Location Lt brachial Position Sitting Pulse Source Pulse Oximeter Pulse Oximetry (%) 96 Oxygen Delivery Method Room Air Intake Visit Reasons: PE/Breast Exam Therapeutic Recreation Leader Required: No Accompanied by: Daughter Allergies No Known Allergies Allergy (Verified 02/29/24 11:34) Medication List - Last Reconciled 02/29/24 by Chaparro Welch PA-C albuterol sulfate 90 mcg/actuation (Ventolin HFA) 1 puff inhalation QID PRN bisacodyl (Dulcolax (bisacodyl)) 10 mg (2 x 5 mg) PO ONCE 1 day blood pressure test kit-large As directed ciclopirox 0.77% 1 appl topical BID 30 days cyclobenzaprine 5 mg PO BID 10 days fluoxetine 80 mg PO DAILY gabapentin 300 mg PO BID 30 days ibuprofen 600 mg PO TID PRN 7 days lidocaine 5% (Lidoderm) 1 patch topical DAILY PRN MDD remove after 12 hours oxycodone 5 mg PO Q8H PRN 7 days polyethylene glycol 3350 (Miralax) 238 grams PO ONCE 1 day simvastatin 20 mg PO DAILY Tobacco use date assessed: 02/29/24 Dental Screening Dental Screen Date: 02/29/24 Did you have a dental visit in the last 12 months?: No Did you have a dental problem in the last 6 months where you did not have access to dental care?: Yes Was dental information given to patient?: Yes HPI PE/Breast Exam HPI Details Patient is a 59 y/ F here today here today for a routine annual physical ?? Patient has a past medical history significant for anxiety, depression and cervical spine disc disease. .. Borderline high cholesterol: Has been working on low cholesterol diet, will continue to follow fasting lipids. Patient has started simvastatin 20 mg and will recheck her fasting lipid panel at next visit. . Cervical spine disc disease: This has been a chronic condition for her. Patient continues on gabapentin 300 b.i.d.. She has been seeing a chiropractor which has been helpful on reducing her pain. ? .. ? Depression: Is seeing therapist. ? Patient reports her mood is well controlled on fluoxetine 40 mg daily. REports a few deaths in her family that has caused her to become more depressed.? She reports her appetite is down.? Have noted weight loss since last visit 1 year ago. Mammogram:? Mammogram done in August 2022 - BI-RADS 1-needs up-to-date mammo .. vaccine: UTD with tdap, UTD with flu, Declines COVID. .. Colonoscopy: interested in [facility] Medical History (Updated 02/29/24 @ 11:49 by Chaparro Welch PA-C) Annual physical exam Bronchitis Neck pain Obese Breast cancer screening SOB (shortness of breath) on exertion Colon cancer screening Screening for hypothyroidism Screening for hypercholesterolemia Screening for diabetes mellitus (DM) Obese Surgical History Hx of cholecystectomy (~2016) No pertinent past surgical history Family History Father Medical history unknown Mother Hypertension Diabetes Depression Mental health disorder Brother No problems noted. Sister No problems noted. Maternal Uncle Lung cancer Social History Housing: Apartment Alcohol intake: never Patient Tobacco Use Status: Never used Tobacco Tobacco use type: Cigarette e-Cigarette/Vaping Use: Never Used Second Hand Smoke Exposure: No service: No Current occupational status: unemployed Cognitive needs: No Hearing needs: No Vision needs: No Questionnaire PHQ-9 Over the last 2 weeks, how often have you been bothered by any of the following problems? 1. Little interest or pleasure in doing things: not at all 2. Feeling down, depressed, or hopeless: not at all 3. Trouble falling or staying asleep, or sleeping too much: not at all 4. Feeling tired or having little energy: not at all 5. Poor appetite or overeating: not at all 6. Feeling bad about yourself - or that you are a failure or have let yourself or your family down: not at all 7. Trouble concentrating on things, such as reading the newspaper or watching television: not at all 8. Moving or speaking so slowly that other people could have noticed. Or the opposite - being so fidgety or restless that you have been moving around a lot more than usual: not at all 9. Thoughts that you would be better off or of hurting yourself in some way: not at all Total score: 0 Depression Screening Interpretation: Negative Depression Screening Done: Yes 00053 - PHQ-9 Billing: Yes Source: Developed by Drs. Arturo Lock, Natividad Cisneros, Alban Espinoza and colleagues, with an educational brent from [employer]. Thrive Questionnaire Date Thrive assessed: 02/29/24 I am a: Patient What is your living situation today?: I have a steady place to live Within the past 12 months, did the food you bought not last and you didn't have the money to get more?: Never true Within the past 12 months, did you worry whether your food would run out before you got money to buy more?: Never true Do you have trouble paying for medicines?: No Do you have trouble getting transportation to medical appointments?: No Do you have trouble paying your heating and electricity bill?: No Do you have trouble taking care of your child, family member or friend?: No Do you have trouble with day-to-day activities such as bathing, preparing meals, shopping, managing finances, etc.?: No Are you currently unemployed and looking for a job?: No Are you interested in more education?: No Please select the resources that you would like help with: None Currently or been in a relationship where the following occur: no concerns reported THRIVE Score: 0 AUDIT C Alcohol Use Questionnaire (AUDIT-C) 1. How often do you have a drink containing alcohol?: Never Total Score: 0 Score Reviewed/Action Taken: No ASHLEY-7 AMB Questionnaire ASHLEY-7 Date ASHLEY - 7 assessed: 02/29/24 Feeling nervous, anxious, or on edge: 0 = Not at all Not being able to stop or control worryin = Not at all Worrying too much about different things: 0 = Not at all Trouble relaxin = Not at all Being so restless that it is hard to sit still: 0 = Not at all Becoming easily annoyed or irritable: 0 = Not at all Feeling afraid as if something awful might happen: 0 = Not at all Total ASHLEY-7 score (0-4 normal; 5-9 mild; 10-14 moderate; 15-21 severe): 0 Source: Developed by Drs. Arturo Lock, Natividad Cisneros, Alban Espinoza and colleagues, with an educational brent from [employer] ASHLEY-7 Assessment Billing ASHLEY-7 Assessment Tool: ASHLEY-7 Assessment 78761 Review of Systems Const Denies body aches, Denies chills, Denies excessive sweating, Denies fatigue, Denies fever(s) and Denies headache(s) Eyes Denies blurry vision ENT Denies dysphagia, Denies vertigo, Denies dizziness, Denies headache(s), Denies hearing loss and Denies tinnitus Card Denies chest pain, Denies chest pain with activity, Denies syncope, Denies irregular heart rhythm and Denies dyspnea Resp Denies chest congestion, Denies cough, Denies hemoptysis, Denies dyspnea and Denies wheezing GI Denies abdominal pain, Denies melena, Denies hematochezia, Denies coffee ground emesis, Denies dysphagia, Denies diarrhea, Denies nausea and Denies vomiting Denies urinary frequency, Denies dysuria, Denies urinary hesitancy and Denies urinary urgency Musc Denies arthralgias, Denies limited range of motion, Denies muscle cramps and Denies muscle weakness Skin/Breast Denies rash and Denies skin ulcer Neuro Denies Abnormal speech present, Denies confusion, Denies vertigo, Denies dizziness, Denies syncope, Denies headache(s), Denies memory loss and Denies seizure-like activity Psych Denies anxiety, Denies confusion, Denies depression, Denies memory loss, Denies panic attacks and Denies paranoia Endo Denies excessive sweating, Denies fatigue, Denies flushing, Denies polydipsia and Denies polyuria Aller/Immun Denies wheezing Physical exam (Primary Care) Vital Signs: Last Vital Signs BP 126/88 02/29/24 11:17 Pulse Ox 96 02/29/24 11:17 Oxygen Delivery Method Room Air 02/29/24 11:17 BMI result Body Mass Index 40.1 BMI Assessment/Plan discussion: High BMI High, discussed plan: lifestyle, weight reduction, dietary and physical activity Tobacco/Smoking Status: Tobacco use Status Tobacco use date assessed 02/29/24 02/29/24 11:30 Patient Tobacco Use Status Never used Tobacco 02/29/24 11:30 Tobacco use type Cigarette 02/29/24 11:30 e-Cigarette/Vaping Use Never Used 02/29/24 11:30 PHQ-9: PHQ-9 Score PHQ-9: Total score 0 02/29/24 11:36 Depression Screening Interpretation: Negative Thrive Assessment: Date of Thrive Assessment Date Thrive assessed 02/29/24 02/29/24 11:30 Currently or been in a relationship where the following occur: no concerns reported Const General: cooperative, comfortable, no acute distress, alert and awake; No confusion Orientation/consciousness: oriented to person, oriented to place, patient oriented x3 and No confusion HENMT Head: Yes normocephalic Ears: external ears normal and TM's normal bilaterally Face and sinus: No sinus tenderness Mouth: Normal oral and palatal mucosa present and tongue normal Teeth and gingiva: dentition normal and gingiva normal Throat: Yes posterior oropharynx normal, Yes tonsils normal and Yes uvula midline Eyes Conjunctivae: conjunctivae normal Sclerae: sclerae normal Pupils: Equal, round and reactive pupils present EOM: EOMs intact bilaterally Direct Ophthalmoscopy: No no photophobia Neck Neck: Yes no lymphadenopathy, No tender and Yes no JVD Thyroid: Thyroid normal Carotids: no bruits Chest Chest palpation & inspection: no tenderness Resp Effort & Inspection: normal respiratory effort, no audible wheezes, not labored and no stridor Auscultation: no crackles, no rales, no rhonchi and no wheezes Cardio Jugular venous distension: no JVD Rate: regular rate, not bradycardic and not tachycardic Rhythm: regular rhythm Bruits: no carotid bruits Peripheral pulses: Peripheral pulses 2+ throughout GI Inspection: Yes normal to inspection, No abdominal wall ecchymosis and No visible herniation Palpation (GI): Soft to palpation, nontender, no guarding, not rigid and No hepatosplenomegaly present Auscultation: normoactive bowel sounds General: Yes no CVA tenderness Back/Spine/Pelvis Back: no CVA tenderness and No back tenderness Cervical Spine: cervical ROM normal Thoracic/Lumbar Spine: thoracic and lumbar spine normal to inspection, straight leg raise negative bilaterally, No thoraco-lumbar ROM limited and No lumbar spinal tenderness Skin Lesions: no lesions Rashes: no rashes Wounds: no wounds Neuro General: oriented to person, oriented to place, patient oriented x3, CN's II-XI intact bilaterally and No confusion Cranial nerves: Yes Equal, round and reactive pupils present and Yes Normal accommodation reflex present Cognition (Neuro): normal cognition Speech: No Abnormal speech present Gait exam (Neuro): Normal gait present Motor exam (neuro): 5/5 motor strength present throughout Extrem Right upper extremity: full ROM; no cyanosis Left upper extremity: full ROM; no cyanosis Right lower extremity: no edema Left lower extremity: no edema Psych Appearance: grossly normal Mental Status: mental status grossly normal Affect: normal affect Attitude: cooperative Thought process: Normal thought process present Assessment and Plan Assessment & Plan (1) Annual physical exam: Code(s): Z00.00 - Encounter for general adult medical examination without abnormal findings (2) HTN (hypertension): Code(s): I10 - Essential (primary) hypertension Qualifiers: Hypertension type: primary hypertension Qualified Code(s): I10 - Essential (primary) hypertension Plan: Patient's blood pressure acceptable today in office. She has been able to manage her blood pressure with lifestyle management. Goal blood pressures to remain below 140/90 (3) HLD (hyperlipidemia): Code(s): E78.5 - Hyperlipidemia, unspecified Qualifiers: Hyperlipidemia type: mixed hyperlipidemia Qualified Code(s): E78.2 - Mixed hyperlipidemia Plan: Patient recently started low-dose statin therapy. Will recheck her fasting lipid panel. Goal LDL to be below 160 (4) MDD (major depressive disorder): Code(s): F32.9 - Major depressive disorder, single episode, unspecified Qualifiers: Active/Remission status: currently active Major depression episode severity: moderate Major depression recurrence: single episode Qualified Code(s): F32.1 - Major depressive disorder, single episode, moderate Plan: Patient continues to follow a mental health therapist and a psychiatrist who manages her mental health medications. She feels stable from a mental health point of view. (5) Cervical disc disease with myelopathy: Code(s): M50.00 - Cervical disc disorder with myelopathy, unspecified cervical region Plan: As per HPI she reports her neck pain has been good over the last few weeks. She has seeing a chiropractor and continues with the use of gabapentin and cyclobenzaprine p.r.n.. Orders: Orders Lipid Panel 02/29/24 E78.2 - Mixed hyperlipidemia Comprehensive [place]. Panel Fast 02/29/24 E78.2 - Mixed hyperlipidemia Referrals Cologuard Test Z12.11 - Encounter for screening for malignant neoplasm of colon Medications: Changed From albuterol sulfate 90 mcg/actuation (Ventolin HFA) 1 puff inhalation QID PRN 18 ea 0RF for wheezing R06.02 - Shortness of breath To albuterol sulfate 90 mcg/actuation (Ventolin HFA) 1 puff inhalation QID 30 days 18 ea 3RF for wheezing R06.02 - Shortness of breath Refilled gabapentin 300 mg PO BID 30 days 60 caps 1RF M50.00 - Cervical disc disorder with myelopathy, unspecified cervical region Discontinued oxycodone Partial Fill upon patient request. Discontinued Reason: Doctor's Order 5 mg PO Q8H 7 days PRN 21 tabs 0RF pain M50.00 - Cervical disc disorder with myelopathy, unspecified cervical region Patient Instructions: Goals: Blood pressure to remain below 140/90, LDL to be below 160 Barriers: Adherence to physical activity and healthy eating habits Coding Level of Care Code Est Pt Prev Care 40-64y([id number]) Diagnoses Annual physical exam Z00.00 Primary hypertension I10 Hypertension type: primary hypertension Mixed hyperlipidemia E78.2 Hyperlipidemia type: mixed hyperlipidemia Current moderate episode of major depressive disorder without prior episode F32.1 Active/Remission status: currently active Major depression episode severity: moderate Major depression recurrence: single episode Cervical disc disease with myelopathy M50.00 Additional Codes ASHLEY-7 Assessment Billing - ASHLEY-7 Assessment Tool: ASHLEY-7 Assessment [id number] ([id number])
== END 2024-02-29 11:58 | disposition home or self-care (01) ==
PROVIDERS: PCP Physician Assistant; Visit Provider Physician Assistant
DX: Z00.00 Encounter for general adult medical examination without abnormal findings (principal); F32.1 Major depressive disorder, single episode, moderate; I10 Essential (primary) hypertension; E78.2 Mixed hyperlipidemia; M50.00 Cervical disc disorder with myelopathy, unspecified cervical region
CPT/HCPCS: 99396